=== PATIENT | male | born 1980 | race Caucasian/White ===

== ENCOUNTER 2016-10-11 16:16 | Emergency (ER) | payer OTHER ==
[2016-10-11 16:56] VITALS: BP 150/94
--- NOTE | 2016-10-11 17:45 | UC ---
Respiratory Complaint HPI - HPI Summary HPI Summary: Pt c/o nasal congestion, cough, PND X 16 hours. Pt is concerned that he may have pneumonia. Reports known exposure to bronchitis. Has history of asthma - History of Current Complaint Chief Complaint: UCGeneralIllness Stated Complaint: COUGH/CONGESTION Time Seen by Provider: 10/11/16 17:31 Hx Obtained From: Patient Onset/Duration: Sudden Onset, Lasting Hours Timing: Constant Severity Initially: Mild Severity Currently: Mild Character: Cough: Productive - phlegm Aggravating Factors: Deep Breaths Alleviating Factors: Nothing Associated Signs And Symptoms: Positive: URI, Nasal Congestion - Risk Factors Pseudomonas Risk Factors: Chronic Lung Disease - Allergies/Home Medications Allergies/Adverse Reactions: Allergies Allergy/AdvReac Type Severity Reaction Status Date / Time No Known Allergies Allergy Verified 11/04/14 19:20 Home Medications: Home Medications Fluticasone/Vilanterol MDI(NF) [Breo Ellipta MDI 100/25(NF)] 1 puff INH DAILY [History Confirmed 10/11/16] PMH/Surg Hx/FS Hx/Imm Hx Previously Healthy: No - see pmh Endocrine History Of: Denies: Diabetes, Thyroid Disease Cardiovascular History Of: Reports: Hypertension Denies: Cardiac Disorders Respiratory History Of: Reports: Asthma - Surgical History Surgical History: Yes Surgery Procedure, Year, and Place: dandy walker syndrome, brain shunt, hernia - Family History Known Family History: Positive: Cardiac Disease - Social History Alcohol Use: None Substance Use Type: None Smoking Status (MU): Never Smoked Tobacco Review of Systems Constitutional: Negative Skin: Negative Eyes: Negative ENT: Other - nasal congestion, PND Respiratory: Shortness Of Breath, Cough Cardiovascular: Negative Gastrointestinal: Negative Genitourinary: Negative Motor: Negative Neurovascular: Negative Musculoskeletal: Negative Neurological: Negative Psychological: Negative All Other Systems Reviewed And Are Negative: Yes Physical Exam Triage Information Reviewed: Yes Appearance: Well-Appearing Vital Signs: Initial Vital Signs Temp 98.4 F 10/11/16 16:50 Pulse 92 10/11/16 16:50 Resp 16 10/11/16 16:50 BP 150/94 10/11/16 16:50 Pulse Ox 96 10/11/16 16:50 Eye Exam: Normal ENT Exam: Other ENT: Positive: Nasal congestion, Tonsillar swelling Neck exam: Normal Respiratory Exam: Normal Cardiovascular Exam: Normal Musculoskeletal Exam: Normal Neurological Exam: Normal Psychological Exam: Normal Skin Exam: Normal UC Diagnostic Evaluation - Laboratory O2 Sat by Pulse Oximetry: 96 Respiratory Course/Dx - Course Course Of Treatment: I discussed with the patient the symptoms of viral illness and that he should not take the antibiotics that were prescribed unless his symptoms worsen over the next 5-7 days. Pt agreed to this plan but stated that he was concerned he had pneumonia. He has a known exposure to bronchitis and history of asthma. - Differential Dx/Diagnosis Differential Diagnosis/HQI/PQRI: Bronchitis, Influenza, Other - URI Provider Diagnoses: Cough. URI Discharge - Discharge Plan Condition: Stable Disposition: HOME Prescriptions: Azithromycin TAB* [Zithromax TAB (Z-MAVERICK) 250 mg #6 tabs] 2 tab PO .TODAY, THEN 1 DAILY #1 maverick Benzonatate CAP* [Tessalon CAP*] 100 mg PO TID PRN #21 cap PRN Reason: Cough predniSONE TAB* [Deltasone TAB*] 30 mg PO DAILY #12 tab Patient Education Materials: Acute Cough (ED) Referrals: Thom Guerin DO [Primary Care Provider] -
== END 2016-10-11 18:08 | disposition home or self-care (01) ==
LOC: UCCORT 16:16
DX: R05 Cough (principal); J06.9 Acute upper respiratory infection, unspecified
CPT/HCPCS: 99212; G0463

== ENCOUNTER 2018-11-15 15:41 | Emergency (ER) | payer OTHER ==
[2018-11-15 16:29] VITALS: BP 144/85
--- NOTE | 2018-11-15 16:42 | UC ---
General HPI - HPI Summary HPI Summary: day 3 of illness. began as a head cold that moved into his chest. the head cold has improved but the cough and chest congestion is suddenly much worse. prior pneumonia, hospitalized x 5 days. wants to ensure not pneumonia again. + hx asthma. - History of Current Complaint Chief Complaint: UCGeneralIllness Stated Complaint: COUGH/CONESTION Time Seen by Provider: 11/15/18 16:36 Hx Obtained From: Patient Onset/Duration: Gradual Onset Timing: Constant Pain Intensity: 2 Associated Signs & Symptoms: Positive: Cough. Negative: Fever - Allergy/Home Medications Allergies/Adverse Reactions: Allergies Allergy/AdvReac Type Severity Reaction Status Date / Time No Known Allergies Allergy Verified 11/15/18 16:15 Home Medications: Home Medications Atorvastatin* [Lipitor*] 40 mg PO DAILY 11/15/18 [History Confirmed 11/15/18] Budesonide/Formote 160/4.5(NF) [Symbicort 160/4.5 (NF)] 2 puff INH BID 11/15/18 [History Confirmed 11/15/18] Ergocalciferol (Vitamin D2) [Vitamin D2] 50 mcg PO WEEKLY 11/15/18 [History Confirmed 11/15/18] Fexofenadine (NF) [Gianna 180 (NF)] 180 mg PO DAILY 11/15/18 [History Confirmed 11/15/18] Levothyroxine TAB* [Synthroid TAB*] 50 mcg PO DAILY 11/15/18 [History Confirmed 11/15/18] Tiotropium [place] [Spiriva Respimat] 1.25 mcg INH BID 11/15/18 [History Confirmed 11/15/18] Tiotropium CAP.INH* [Spiriva CAP.INH*] 1 cap.inh INH BID 11/15/18 [History Confirmed 11/15/18] PMH/Surg Hx/FS Hx/Imm Hx - Additional Past Medical History Additional PMH: hydrocephalus Endocrine History: Thyroid Disease, Dyslipidemia Cardiovascular History: Hypertension Respiratory History: Asthma, Pneumonia Neurological History: Seizures - Surgical History Surgical History: Yes Surgery Procedure, Year, and Place: dandy walker syndrome, brain shunt, hernia - Family History Known Family History: Positive: Cardiac Disease - Social History Alcohol Use: Rare Substance Use Type: None Smoking Status (MU): Never Smoked Tobacco Review of Systems All Other Systems Reviewed And Are Negative: Yes ENT: Positive: Sinus Congestion Respiratory: Positive: Cough Physical Exam Triage Information Reviewed: Yes Appearance: Well-Appearing Vital Signs: Initial Vital Signs Temp 98.1 F 11/15/18 16:23 Pulse 84 11/15/18 16:23 Resp 16 11/15/18 16:23 BP 144/85 11/15/18 16:23 Pulse Ox 98 11/15/18 16:23 Vital Signs Reviewed: Yes Eyes: Positive: Conjunctiva Clear ENT: Positive: Pharynx normal, TMs normal. Negative: Nasal congestion, Nasal drainage Neck: Positive: Supple, Nontender, No Lymphadenopathy Respiratory: Positive: No respiratory distress, Decreased breath sounds Cardiovascular: Positive: RRR, No Murmur Abdomen Description: Positive: Nontender, No Organomegaly, Soft Bowel Sounds: Positive: Present Musculoskeletal: Positive: ROM Intact Neurological: Positive: Alert Psychological: Positive: Age Appropriate Behavior Skin Exam: Normal Diagnostics - Radiology No standard instances Radiology Interpretation Completed By: Radiologist - cxr=NO ACTIVE CARDIOPULMONARY DISEASE. Course/Dx - Differential Dx - Multi-Symptom Differential Diagnoses: Other - NO INFILTRATE ON CXR. NO FEVER AND NO PURULENT SPUTUM. BEGAN URI THE MOVED TO CHEST. NO INDICATION FOR ANTIBIOTICS. - Diagnoses Provider Diagnosis: URI (upper respiratory infection), Asthma Discharge - Sign-Out/Discharge Documenting (check all that apply): Patient Departure All imaging exams completed and their final reports reviewed: Yes - Discharge Plan Condition: Stable Disposition: HOME Prescriptions: predniSONE [Prednisone 20 MG TAB] 40 mg PO DAILY 5 Days #10 tablet Patient Education Materials: Upper Respiratory Infection (DC), Asthma (ED) Referrals: Mookie Mcknight DO [Primary Care Provider] - 5 Days Additional Instructions: USE THE ALBUTEROL INHALER 2 PUFFS EVERY 6 HOURS. - Billing Disposition and Condition Condition: STABLE Disposition: Home
== END 2018-11-15 17:31 | disposition home or self-care (01) ==
LOC: UCCORT 15:41
DX: J06.9 Acute upper respiratory infection, unspecified (principal); E07.9 Disorder of thyroid, unspecified; E78.5 Hyperlipidemia, unspecified; I10 Essential (primary) hypertension; J45.909 Unspecified asthma, uncomplicated; Z79.899 Other long term (current) drug therapy
CPT/HCPCS: 71046; 99212; G0463